=== PATIENT | male | born 1950 | race Hispanic/Latino ===

== ENCOUNTER → 2017-07-18 | Outpatient (CLI) | payer MEDICARE ==
[~2017-07-18] MED LIST: ASPI1CPM8 PO; DOXY100C2 PO; EZET1TAB69 PO; FENO145T37 PO; GLIM2TAB3 PO; LOSA50TA37 PO; METF10004 PO; METO-391 PO; PANT40TA25 PO
== END | disposition home or self-care (01) ==
LOC: SHCH 08:06
PROVIDERS: ATTEND Internal Medicine Cardiovascular Disease
DX: I25.10 Atherosclerotic heart disease of native coronary artery without angina pectoris (principal); I10 Essential (primary) hypertension
CPT/HCPCS: 93306

== ENCOUNTER → 2017-07-19 | Outpatient (CLI) | payer MEDICARE ==
[~2017-07-19] MED LIST changes: +REGADENOSON 0.4 MG/5 ML PF SYG IVP SCH
== END ==
LOC: SHCH 12:32
PROVIDERS: ATTEND Internal Medicine Cardiovascular Disease
DX: I25.10 Atherosclerotic heart disease of native coronary artery without angina pectoris (principal); I10 Essential (primary) hypertension
CPT/HCPCS: 78452; 93017; 96374; A9500 ×2; J2785

== ENCOUNTER 2017-08-31 08:13 | Observation (INO) | payer MEDICARE ==
[2017-08-29 08:13] VITALS: BP 126/74
[2017-08-29 08:45] LABS: CREATININE 1.6 mg/dL (0.5-1.5); POTASSIUM 4.8 mmol/L (3.5-5.1)
[2017-08-29 08:49] LABS: INR 1.02 (0.85-1.15); PARTIAL THROMBOPLASTIN TIME 25.7 SEC (26.3-35.5); PROTHROMBIN TIME 10.7 SEC (9.6-11.6)
[2017-08-29 09:03] LABS: BASOPHILS % (AUTO) 1.1 % (0.0-5.0); EOSINOPHILS % (AUTO) 0.9 % (0.0-8.0); HEMATOCRIT 42.7 % (42-54); LYMPHOCYTES % (AUTO) 21.3 % (21.0-51.0); MEAN CORPUSCULAR HEMOGLOBIN 31.8 pg (27.0-33.0); MEAN CORPUSCULAR HGB CONC 35.1 g/dL (32.0-36.0); MEAN CORPUSCULAR VOLUME 90.5 fL (79-99); MONOCYTES % (AUTO) 8.6 % (3.0-13.0); NEUTROPHILS % (AUTO) 68.1 % (40.0-77.0); NUCLEATED RED BLOOD CELLS 0.1 % (0.0-0.19); PLATELET COUNT (AUTO) 201 K/uL (130-400); RED BLOOD CELL COUNT(AUTO) 4.72 MIL/uL (4.50-6.20); RED CELL DISTRIBUTION WIDTH 12.7 % (11.0-15.5); WHITE BLOOD COUNT (AUTO) 7.7 K/uL (4.8-10.8)
[2017-08-31] VITALS (9 sets, daily range): BP systolic 97–139; BP diastolic 57–82
[~2017-08-31] VITALS: Ht 180.3 cm; Wt 89.6 kg
[~2017-08-31 08:13] MED LIST changes: +CEFAZOLIN SODIUM 1 GM VIAL IVP SCH; -DOXY100C2 PO; -REGADENOSON 0.4 MG/5 ML PF SYG IVP SCH
[2017-08-31] MEDS: SODIUM CHLORIDE 0.9% 1000ML 1,000 ML IV SCH ×4 (10:21→21:29)
[2017-08-31] MEDS ORDERED: CEFAZOLIN 1GM / D5W 50ML 100 ML ONE (14:17)
[2017-08-31] MEDS ORDERED: BUPIVACAINE/PF 0.25% 30ML VIAL IJ ONE (14:17)
[2017-08-31] MEDS ORDERED: LIDOCAINE HCL 1% MDV 50ML VIAL ONE (14:18)
[2017-08-31] MEDS ORDERED: CEFAZOLIN SODIUM 1 GM VIAL ONE (14:21)
[2017-08-31] MEDS ORDERED: MEPERIDINE-PF 25 MG/ML SYG ONE ×3 (14:28→15:14)
[2017-08-31] MEDS ORDERED: MIDAZOLAM HCL 1 MG/ML 2ML VIAL ONE ×3 (14:28→15:14)
[2017-08-31] MEDS ORDERED: ISOVUE-300 100 ML VIAL IV ONE (14:28)
[2017-08-31] MEDS ORDERED: TEMAZEPAM 30 MG CAP PO PRN (16:30)
[2017-08-31] MEDS ORDERED: ONDANSETRON HCL MDV 20ML 2 MG/ML VIAL IV PRN (16:30)
[2017-08-31] MEDS ORDERED: ACETAMINOPHEN 325 MG TAB PO PRN ×2 (16:30)
[2017-08-31] MEDS ORDERED: ACETAMINOPHEN-CODEINE 300/30MG TAB PO PRN ×2 (16:30)
[2017-08-31] MEDS ORDERED: CEFAZOLIN 2GM / 50 ML 50 ML IV SCH (16:30)
[2017-08-31] MEDS: INSULIN HUMULIN R 100 UNIT/ML 3ML SQ SCH ×2 (16:30→21:29)
[2017-08-31] MEDS ORDERED: DOXY100C2 PO (16:35)
[2017-08-31] MEDS: METFORMIN HCL 500 MG TABLET PO SCH (17:28)
[2017-08-31] MEDS: METOPROLOL TARTRATE 50 MG TAB PO SCH (20:49)
[2017-08-31] MEDS: GLIMEPIRIDE 2 MG TABLET PO SCH (20:50)
[2017-08-31] MEDS: ASPIRIN PO SCH (20:50)
[2017-08-31] MEDS: DIPYRIDAMOLE PO SCH (20:50)
[2017-08-31] MEDS: [UNRECOGNIZED DRUG - OTHER] PO SCH (20:50)
[2017-08-31] MEDS ORDERED: EZETIMIBE 10 MG TAB PO SCH (21:00)
[2017-08-31] MEDS ORDERED: ATORVASTATIN CALCIUM 20 MG TABLET PO SCH (21:00)
[2017-09-01 03:20] VITALS: BP 113/68
[2017-09-01] MEDS: INSULIN HUMULIN R 100 UNIT/ML 3ML SQ SCH (06:25)
[2017-09-01 07:35] VITALS: BP 123/76
[2017-09-01] MEDS ORDERED: CEFAZOLIN 1GM / D5W 50ML 50 ML IV SCH (08:00)
[2017-09-01] MEDS ORDERED: CEFAZOLIN SODIUM 1 GM VIAL IVP SCH (08:30)
[2017-09-01] MEDS ORDERED: FENOFIBRATE NANOCRYSTALLIZED 145 MG TAB PO SCH (09:00)
[2017-09-01] MEDS ORDERED: LOSARTAN 50 MG TABLET PO SCH (09:00)
[2017-09-01] MEDS ORDERED: PANTOPRAZOLE SODIUM 40 MG TABLET.DR PO SCH (09:00)
[2017-09-01] MEDS: [UNRECOGNIZED DRUG - OTHER] PO SCH (09:33)
[2017-09-01] MEDS: DIPYRIDAMOLE PO SCH (09:33)
[2017-09-01] MEDS: ASPIRIN PO SCH (09:33)
[2017-09-01] MEDS: GLIMEPIRIDE 2 MG TABLET PO SCH (09:34)
[2017-09-01] MEDS: METFORMIN HCL 500 MG TABLET PO SCH (09:34)
[2017-09-01] MEDS: METOPROLOL TARTRATE 50 MG TAB PO SCH (09:34)
== END 2017-09-01 11:50 | disposition home or self-care (01) ==
LOC: DAH 08:13 → DAHIP 08:14 → DAH 08:14 → 2DH 18:49
PROVIDERS: ADMIT Internal Medicine Cardiovascular Disease; ATTEND Internal Medicine Cardiovascular Disease
DX: I25.5 Ischemic cardiomyopathy (principal); I11.0 Hypertensive heart disease with heart failure; I50.42 Chronic combined systolic (congestive) and diastolic (congestive) heart failure; I45.10 Unspecified right bundle-branch block; M54.17 Radiculopathy, lumbosacral region; I25.10 Atherosclerotic heart disease of native coronary artery without angina pectoris; E78.5 Hyperlipidemia, unspecified; E11.9 Type 2 diabetes mellitus without complications; F17.210 Nicotine dependence, cigarettes, uncomplicated; Z86.73 Personal history of transient ischemic attack (TIA), and cerebral infarction without residual deficits; Z95.5 Presence of coronary angioplasty implant and graft; Z95.1 Presence of aortocoronary bypass graft; Z79.899 Other long term (current) drug therapy
CPT/HCPCS: 33225; 33249; 36415; 71045; 71046; 80048; 82948 ×3; 85025; 85610; 85730; 93005; 96372; 96374; A4218; A4606; C1769 ×5; C1882; C1894; C1895 ×2; C1900; G0378 ×28; J0690 ×4; J1815; J2175 ×3; J2250 ×3; J3490 ×2; J7030; Q9967; 99152; 99153

== ENCOUNTER → 2019-04-16 | Outpatient (CLI) | payer MEDICARE ==
[~2019-04-16] MED LIST changes: -CEFAZOLIN SODIUM 1 GM VIAL IVP SCH; +DOXY100C2 PO; -EZET1TAB69 PO; +EZET1TAB70 PO; -GLIM2TAB3 PO; +GLIM2TAB4 PO; -LOSA50TA37 PO; +LOSA50TA64 PO; +METF-446 PO; -METF10004 PO
== END | disposition home or self-care (01) ==
LOC: SHCH 14:46
PROVIDERS: ATTEND Internal Medicine Cardiovascular Disease
DX: I65.23 Occlusion and stenosis of bilateral carotid arteries (principal)
CPT/HCPCS: 93880

== ENCOUNTER → 2020-07-01 | Outpatient (CLI) | payer MEDICARE ==
[~2020-07-01] VITALS: Ht 177.8 cm; Wt 88.9 kg
[~2020-07-01] MED LIST changes: +FENO145T26 PO; -FENO145T37 PO; +GLIM2TAB30 PO; -GLIM2TAB4 PO; -PANT40TA25 PO; +PANT40TA54 PO; +REGADENOSON 0.4 MG/5 ML PF SYG IVP SCH
== END | disposition home or self-care (01) ==
LOC: SHCH 08:00
PROVIDERS: ATTEND Internal Medicine Cardiovascular Disease
DX: I10 Essential (primary) hypertension (principal); I51.89 Other ill-defined heart diseases
CPT/HCPCS: 78452; 93017; 96374; A9500 ×2; J2785

== ENCOUNTER → 2021-11-12 | Outpatient (CLI) | payer MEDICARE ==
[~2021-11-12] MED LIST changes: -DOXY100C2 PO; +DOXY100C5 PO; +EZET-61 PO; -EZET1TAB70 PO; -REGADENOSON 0.4 MG/5 ML PF SYG IVP SCH
[2021-11-12 12:34] LABS: BASOPHILS % (AUTO) 0.8 % (0.0-5.0); EOSINOPHILS % (AUTO) 0.8 % (0.0-8.0); HEMATOCRIT 47.9 % (42-54); LYMPHOCYTES % (AUTO) 20.2 % (21.0-51.0); MEAN CORPUSCULAR HEMOGLOBIN 30.4 pg (27.0-33.0); MEAN CORPUSCULAR HGB CONC 34.2 g/dL (32.0-36.0); MEAN CORPUSCULAR VOLUME 88.7 fL (79-99); MONOCYTES % (AUTO) 10.1 % (3.0-13.0); NEUTROPHILS % (AUTO) 67.3 % (40.0-77.0); PLATELET COUNT (AUTO) 182 K/uL (130-400); RED CELL DISTRIBUTION WIDTH 13.1 % (11.0-15.5); WHITE BLOOD COUNT (AUTO) 9.6 K/uL (4.8-10.8)
[2021-11-12 12:48] LABS: HEMOGLOBIN A1C 7.3 % (4.0-6.0)
[2021-11-12 13:02] LABS: ALBUMIN 4.7 g/dL (3.5-5.0); BILIRUBIN,TOTAL 0.6 mg/dL (0.2-1.0); CREATININE 1.6 mg/dL (0.5-1.5); MAGNESIUM 2.2 mg/dL (1.80-2.40); T4 (THYROXINE) 9.8 ug/dL (4.7-13.3); THYROID STIMULATING HORMONE 1.97 uIU/mL (0.36-3.74); TOTAL PROTEIN, SERUM 8.1 g/dL (6.0-8.3)
[2021-11-12 13:40] LABS: DIGOXIN 0.83 ng/mL (0.50-2.00)
== END | disposition home or self-care (01) ==
LOC: LAB 08:30
PROVIDERS: ATTEND Internal Medicine Cardiovascular Disease
DX: I25.10 Atherosclerotic heart disease of native coronary artery without angina pectoris (principal); I10 Essential (primary) hypertension; E78.5 Hyperlipidemia, unspecified; E11.9 Type 2 diabetes mellitus without complications; Z79.899 Other long term (current) drug therapy
CPT/HCPCS: 36415; 80053; 80061; 80162; 83036; 83735; 84436; 84443; 84479; 85025

== ENCOUNTER → 2022-07-14 | Outpatient (CLI) | payer MEDICARE | END | disposition home or self-care (01) | LOC: SHCH 10:28 | PROVIDERS: ATTEND Internal Medicine Cardiovascular Disease | DX: I35.0 Nonrheumatic aortic (valve) stenosis (principal); I48.0 Paroxysmal atrial fibrillation; I11.9 Hypertensive heart disease without heart failure; E11.9 Type 2 diabetes mellitus without complications; E78.5 Hyperlipidemia, unspecified; Z95.0 Presence of cardiac pacemaker; Z95.1 Presence of aortocoronary bypass graft | CPT/HCPCS: 93306 ==

== ENCOUNTER → 2023-02-07 | Outpatient (CLI) | payer MEDICARE, OTHER ==
[2023-02-07 22:01] VITALS: PULSE 61; RESP 14
[2023-02-07 22:43] VITALS: PULSE 34; PULSE 69; RESP 16
[2023-02-07 23:02] VITALS: PULSE 54; RESP 16
[2023-02-07 23:35] VITALS: PULSE 60; RESP 12
[2023-02-07 23:59] VITALS: PULSE 62; RESP 10
[2023-02-08] VITALS (11 sets, daily range): PULSE 43–70; RESP 12–14
== END | disposition home or self-care (01) ==
LOC: SLP 20:18
PROVIDERS: ATTEND Internal Medicine Cardiovascular Disease
DX: G47.33 Obstructive sleep apnea (adult) (pediatric) (principal)
CPT/HCPCS: 95810

== ENCOUNTER → 2024-08-16 | Outpatient (CLI) | payer OTHER ==
[~2024-08-16] MED LIST changes: +APIX5TAB PO; +ASCO100031 PO; -ASPI1CPM8 PO; +CALCIUM PO; +DIGO250T73 PO; -DOXY100C5 PO; +DRON400T7 PO; +EMPA25TA PO; -EZET-61 PO; +EZET10TA48 PO; -FENO145T26 PO; +FURO20TA4 PO; +ICOS1CAP PO; +INSU300I SQ; -LOSA50TA64 PO; -METF-446 PO; -METO-391 PO; +METO-409 PO; +MOM30 PO; +SEMA1PEN3 SQ; +SIMV-43 PO; +SPIR25TA6 PO; +TRAM50TA4 PO; +VIT PO
--- NOTE | 2024-08-23 01:17 | HMCSR ---
APPROVED REPORT EXAM: Two-dimensional and M-mode echocardiogram with Doppler and color Doppler. INDICATION ICD: Ischemic cardiomyopathy I25.5 2D Dimensions RVDd2.8 cmLVEF(%)16.2 (>50%)LVED Vol(simp.)136.0 mL IVSd0.8 (0.7-1.1cm)FS(%)7 %LVES Vol(simp.)103.0 mL LVDd6.7 (3.8-5.6cm)Ao Root(2D)3.5 (2.0-3.7cm)LVEF(%, simp.)24 % PWd0.8 (0.7-1.1cm)LVOT diam2.4 (1.8-2.4cm)LA ESV INDEX (BP)24.85 mL/m2 LVDs6.2 (2.5-4.0cm)IVC diam1.1 cm Aortic Valve AoV Vmax2.0 m/Nikki Peak GR15.4 mmHgLVOT Vmax0.7 m/s AoV VTI0.3 mAo Mean GR10.3 mmHgLVOT VTI0.11 m BONNIE (VMAX)1.5 cm2AVA (VTI) 1.5 cm2 Mitral Valve MV E Nrux239.1 cm/s MR Max PG64 mmHg Pulmonary Valve PV Vmax1.0 m/sPV VTI0.19 mPV Mean GR2 mmHg PV Peak GR3.8 mmHg Tricuspid Valve TR Vmax1.5 m/sRAP (EST) 3 udFzZGUS94.5 mmHg TR Peak GR9.5 mmHg Left Ventricle The left ventricle is severely dilated, LVIDd 6.7cm. There is paradoxical septal wall motion noted. T he mid/apical inferior and inferolateral baugh are akinetic. The basal/mid/apical anterior, and anter ior lateral baugh are hypokinetic. Mild eccentric left ventricular hypertrophy. Left ventricle systol ic function is severely depressed, estimated LVEF 25-30%. Indeterminate diastolic dysfunction. Right Ventricle The right ventricle is dilated. The right ventricular is mildly depressed. Device lead is present in the right ventricle. Atria The left atrium is mildly dilated. The right atrium is dilated. Aortic Valve Aortic valve is trileaflet. The leaflets are thickened and calcified. Mild aortic regurgitation. Mild aortic stenosis, peak velocity 1.9 m/s, mean gradient 10 mmHg. Mitral Valve Mild MAC. The leaflets are mildly thickened and calcified. Mild to moderate mitral regurgitation. The re is no mitral valve stenosis. Tricuspid Valve The tricuspid valve leaflets appear normal. Trace tricuspid regurgitation. RVSP is 10 mmHg. Pulmonic Valve Pulmonic valve is not well visualized. Great Vessels The aortic root is normal in size. The IVC is normal in size and collapses >50% with inspiration. Pericardium No pericardial effusion. Conclusion The left atrium is mildly dilated. The right atrium is dilated. The left ventricle is severely dilated, LVIDd 6.7cm. The right ventricle is dilated. Mild eccentric left ventricular hypertrophy. There is paradoxical septal wall motion noted. The mid/apical inferior and inferolateral baugh are a kinetic. The basal/mid/apical anterior, and anterolateral baugh are hypokinetic. Left ventricle systolic function is severely depressed, estimated LVEF 25-30%. Indeterminate diastolic dysfunction. Mild aortic stenosis, peak velocity 1.9 m/s, mean gradient 10 mmHg. Mild aortic regurgitation. Mild to moderate mitral regurgitation. Trace tricuspid regurgitation. PASP is 13 mmHg (likely underestimated). No pericardial effusion.
== END | disposition home or self-care (01) ==
LOC: SHCH 10:39
PROVIDERS: ATTEND Internal Medicine Cardiovascular Disease
DX: I08.0 Rheumatic disorders of both mitral and aortic valves (principal); I25.5 Ischemic cardiomyopathy
CPT/HCPCS: 93306

== ENCOUNTER → 2024-11-05 | Outpatient (CLI) | payer OTHER ==
[~2024-11-05] VITALS: Ht 177.8 cm; Wt 74.0 kg
[~2024-11-05] MED LIST changes: +FLAX100031 PO
[2024-11-05 10:46] LABS: BASOPHILS # (AUTO) 0.08 K/uL (0.00-0.20); BASOPHILS % (AUTO) 0.7 % (0.0-5.0); EOSINOPHILS # (AUTO) 0.03 K/uL (0.00-0.70); EOSINOPHILS % (AUTO) 0.3 % (0.0-8.0); HEMATOCRIT 49.8 % (42-54); LYMPHOCYTES # (AUTO) 1.5 K/uL (1.0-4.8); LYMPHOCYTES % (AUTO) 13.7 % (21.0-51.0); MEAN CORPUSCULAR HEMOGLOBIN 31.9 pg (27.0-33.0); MEAN CORPUSCULAR HGB CONC 35.3 g/dL (32.0-36.0); MEAN CORPUSCULAR VOLUME 90.4 fL (79-99); MONOCYTES # (AUTO) 0.7 K/uL (0.1-1.0); MONOCYTES % (AUTO) 6.9 % (3.0-13.0); NEUTROPHILS # (AUTO) 8.3 K/uL (1.8-7.7); NEUTROPHILS % (AUTO) 77.5 % (40.0-77.0); PLATELET COUNT (AUTO) 177 K/uL (130-400); RED BLOOD CELL COUNT(AUTO) 5.51 MIL/uL (4.50-6.20); RED CELL DISTRIBUTION WIDTH 12.8 % (11.0-15.5); WHITE BLOOD COUNT (AUTO) 10.7 K/uL (4.8-10.8)
[2024-11-05 10:54] LABS: CREATININE 1.7 mg/dL (0.5-1.3); POTASSIUM 5.5 mmol/L (3.5-5.1)
[2024-11-05 11:15] VITALS: BP 103/58; PULSE 85; RESP 17; TEMP 97.4
[2024-11-05 11:35] LABS: INR 1.08 (0.85-1.15); PROTHROMBIN TIME 11.4 SEC (9.6-11.6)
[2024-11-05 11:37] LABS: PARTIAL THROMBOPLASTIN TIME 31.9 SEC (26.3-35.5)
--- NOTE | 2024-11-05 11:56 | EKG ---
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
--- NOTE | 2024-11-05 12:16 | NUR ---
REPORT REPORTED TO DR AGUAYO PT DID NOT DECREASE METOPROLOL TO 25MG PO DAILY. PT TOOK METOPROLOL 50MG TODAY. DR AGUAYO WILL CALL ME BACK WITH FURTHER ORDERS.
--- NOTE | 2024-11-05 13:03 | NUR ---
F/U DR AGUAYO CALLED BACK WITH INSTRUCTIONS TO CANCEL PROCEDURE D/T PT TAKING METOPROLOL. OFFICE WILL CALL PT WITH APPT DATE. PT NOTIFIED.
== END | disposition home or self-care (01) ==
LOC: LAB 10:10 → EDSTATUS 11-08 10:00
PROVIDERS: ATTEND Internal Medicine Cardiovascular Disease
DX: I49.3 Ventricular premature depolarization (principal); Z79.01 Long term (current) use of anticoagulants
CPT/HCPCS: 36415; 80048; 85025; 85610; 85730; 93005

== ENCOUNTER 2024-11-27 05:49 | Day surgery (SDC) | payer OTHER ==
[2024-11-23 08:51] LABS: IMMATURE GRANULOCYTE ABSOLUTE 0.10 K/uL (0-1); NUCLEATED RED BLOOD CELLS 0.0 % (0.0-0.19); PLATELET COUNT (AUTO) 164 K/uL (130-400); RED BLOOD CELL COUNT(AUTO) 5.32 MIL/uL (4.50-6.20); RED CELL DISTRIBUTION WIDTH 13.0 % (11.0-15.5); WHITE BLOOD COUNT (AUTO) 11.3 K/uL (4.8-10.8)
[2024-11-23 09:00] LABS: CREATININE 1.7 mg/dL (0.5-1.3); GLOMERULAR FILTR. RATE CALC 42.0 mL/min (>90); GLUCOSE,RANDOM 241.0 mg/dL (70-105); INR 1.09 (0.85-1.15); SODIUM SERUM 138.0 mmol/L (136-145); UREA NITROGEN, BLOOD 31.0 mg/dL (7-18)
--- NOTE | 2024-11-23 09:14 | EKG ---
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
[2024-11-23 09:32] VITALS: BP 102/40; PULSE 55; RESP 14; TEMP 97.3
--- NOTE | 2024-11-23 10:25 | NUR ---
VERIFIED CALLED FABIO WITH DR AGUAYO TO VERIFY STOP DATE FOR ELIQUIS. PT TO HOLD ONE DAY PRIOR TO PROCEDURE. PT NOTIFIED AND VOICED UNDERSTANDING
--- NOTE | 2024-11-26 13:50 | NUR ---
REPORT REPORTED BMP/WBC TO DR AGUAYO. OK TO PROCEED
[2024-11-27] VITALS (8 sets, daily range): BP systolic 105–126; BP diastolic 56–73; PULSE 56–94; RESP 14–19; TEMP 97.2–97.6
[~2024-11-27] VITALS: Ht 177.8 cm; Wt 73.2 kg
[~2024-11-27 05:49] MED LIST changes: -CALCIUM PO; -MOM30 PO; -TRAM50TA4 PO; -VIT PO; +calcium PO
[2024-11-27] MEDS: 0.9%NACL 1000ML 1,000 ML IV SCH (06:42)
[2024-11-27] MEDS ORDERED: SODIUM BICARB 50MEQ 50ML VIAL 50 ML ONE (07:33)
[2024-11-27] MEDS ORDERED: LIDOCAINE HCL 400MG/20ML VIAL ONE (07:33)
[2024-11-27] MEDS ORDERED: HEParin-NS 1,000 UNIT/500 ML 1,000 ML IV ONE (07:35)
[2024-11-27] MEDS ORDERED: MIDAZOLAM HCL 1 MG/ML 2ML VIAL ONE ×3 (07:59→13:00)
[2024-11-27] MEDS ORDERED: ISOPROTERENOL HCL 0.2 MG/ML AMP/VIAL/BAG ONE (08:23)
[2024-11-27] MEDS ORDERED: ADENOSINE 6MG VIAL IV ONE (08:23)
[2024-11-27] MEDS ORDERED: PROTamine SULFate 10 MG/ML 25ML VIAL IV ONE (14:35)
--- NOTE | 2024-11-27 16:55 | EKG ---
[facility] Test Date: 2024-11-27 Test Time: 15:46:09 Pat Name: VIRAL MESA Department: [facility] Room: [facility] Gender: M Licensed Funeral Director: [id number] : 1950 Requested By: NINFA AGUAYO Order Number: [id number] Reading MD: Bismark Wray Measurements Intervals [place] Rate: 82 P: -15 [place]: 157 QRS: 266 QRSD: 163 T: 21 QT: 440 QTc: 515 Interpretive Statements Atrial-sensed ventricular-paced rhythm Biventricular paced rhythm Compared to ECG 11/23/2024 08:20:40 No significant changes Electronically Signed On 11-28-2024 15:35:09 CDT by Bismark Wray Please click the below link to view image of tracing.
--- NOTE | 2024-11-27 17:10 | NUR ---
REPORT PATIENT AWAKE AND ALERT ORIENTED X4. SIDE RAILS UP X4. CALL LIGHT AT BEDSIDE. FAMILY AT BEDSIDE. REPORT GIVEN TO VANESA MACK. RIGHT FEMORAL SIGHT NO ACTIVE BLEEDING OR DRAINAGE. NO SWELLING OR REDNESS NOTED.
--- NOTE | 2024-11-27 17:12 | NUR ---
URINE VOIDED 400CC URINE. YELLOW, CLEAR URINE.
--- NOTE | 2024-11-27 18:11 | NUR ---
Full and complete discharge instructions given to Patient and Family both verbally and in writing. Explained Angiogram/Ablation procedure precautions and follow up. Right groin site clean dry and intact. No evidence of bleeding, bruising or hematoma. Pedal pulses intact to BLE's. All questions answered. PIV removed with catheter tip intact. Sister at bedside appearing supportive. W/C to POV with Sister to home.
== END 2024-11-27 18:05 | disposition home or self-care (01) ==
LOC: DAH 05:49
PROVIDERS: ATTEND Internal Medicine Cardiovascular Disease
DX: I49.3 Ventricular premature depolarization (principal); I13.0 Hypertensive heart and chronic kidney disease with heart failure and stage 1 through stage 4 chronic kidney disease, or unspecified chronic kidney disease; I50.42 Chronic combined systolic (congestive) and diastolic (congestive) heart failure; N18.30 Chronic kidney disease, stage 3 unspecified; I25.10 Atherosclerotic heart disease of native coronary artery without angina pectoris; G47.33 Obstructive sleep apnea (adult) (pediatric); E78.5 Hyperlipidemia, unspecified; E11.9 Type 2 diabetes mellitus without complications; F43.10 Post-traumatic stress disorder, unspecified; I48.0 Paroxysmal atrial fibrillation; I25.5 Ischemic cardiomyopathy; Z95.1 Presence of aortocoronary bypass graft; Z95.5 Presence of coronary angioplasty implant and graft; Z99.89 Dependence on other enabling machines and devices; Z86.73 Personal history of transient ischemic attack (TIA), and cerebral infarction without residual deficits; Z95.810 Presence of automatic (implantable) cardiac defibrillator; Z79.01 Long term (current) use of anticoagulants; Z79.899 Other long term (current) drug therapy
CPT/HCPCS: 80048; 85025; 85610; 85730; 36415 ×2; 93005 ×2; 93654; 93462; 93662; 99156; 99157 ×5; 85347 ×9; 82948 ×3; C1894 ×3; C1732 ×3; C1893; A4215 ×2; A4649 ×2; C1760 ×3; J3010 ×2; J3490 ×2; J7030; J1644 ×4; J2250 ×3; A4222; A4221; A4663; A4216; A4606; J2720; A4223 ×3; J0153